=== PATIENT | female | born 1970 | race Caucasian/White ===

== ENCOUNTER 2018-01-16 15:43 | Outpatient (CLI) | payer BC | END 2018-01-16 15:44 | disposition home or self-care (01) | LOC: BICMAMMO 15:43 | PROVIDERS: ATTEND Obstetrics & Gynecology | DX: Z12.31 Encounter for screening mammogram for malignant neoplasm of breast (principal) | CPT/HCPCS: 76856; 77063; 77067 ==

== ENCOUNTER 2018-12-17 09:18 | Outpatient (CLI) | payer BC ==
--- NOTE | 2018-12-17 14:30 | ULT ---
Exam: Pelvic ultrasound HISTORY: Pelvic pain COMPARISON: 01/16/2018 TECHNIQUE: Multiple grayscale and color Doppler images were obtained in a transabdominal and transvag inal pelvic ultrasound. Spectral analysis of the Doppler waveforms of the ovaries were performed. FINDINGS: CERVIX: Grossly within normal limits where visualized. UTERUS: Normal in size without focal abnormality. ENDOMETRIAL STRIPE: 15 mm which is mildly increased in thickness. Endometrial stripe thickness on the prior study measured 12 mm. No fluid or fluid collection is seen in the endometrial canal. No free fluid is present. RIGHT OVARY: Normal flow, without focal mass. LEFT OVARY: Normal flow, without focal mass. IMPRESSION: 1. Mild nonspecific thickening of the endometrial stripe. No fluid or fluid collection is seen in the endometrial canal. 2. Normal appearing bilateral ovaries with flow documented in each ovary.
== END 2018-12-17 09:19 | disposition home or self-care (01) ==
LOC: BICULT 09:18
PROVIDERS: ATTEND Obstetrics & Gynecology
DX: R10.2 Pelvic and perineal pain (principal)
CPT/HCPCS: 76856

== ENCOUNTER 2019-04-29 15:51 | Outpatient (CLI) | payer BC ==
--- NOTE | 2019-04-29 16:24 | MMO ---
Bilateral MAMMO Bilat Screen [facility]. CLINICAL HISTORY: Patient is 49 years old and is seen for screening. The patient has no family history of breast cancer. The patient has no personal history of cancer. VIEWS: The views performed were: bilateral craniocaudal with tomosynthesis and bilateral mediolateral oblique with tomosynthesis. FILMS COMPARED: The present examination has been compared to prior imaging studies performed at [facility] on 02/16/2014, 08/15/2015, 11/28/2016 and 01/16/2018. This study has been interpreted with the assistance of computer-aided detection. MAMMOGRAM FINDINGS: There are scattered fibroglandular densities. There are no suspicious masses, suspicious calcifications, or new areas of architectural distortion. IMPRESSION: THERE IS NO MAMMOGRAPHIC EVIDENCE OF MALIGNANCY. A ROUTINE FOLLOW-UP MAMMOGRAM IN 1 YEAR IS RECOMMENDED. THE RESULTS OF THIS EXAM WERE SENT TO THE PATIENT. ACR BI-RADS Category 1 - Negative MAMMOGRAPHY NOTE: 1. A negative mammogram report should not delay a biopsy if a dominant of clinically suspicious mass is present. 2. Approximately 10% to 15% of breast cancers are not detected by mammography. 3. Adenosis and dense breasts may obscure an underlying neoplasm. Reported by: TAMARA BARRY MD Electonically Signed: [id number]
== END 2019-04-29 15:52 | disposition home or self-care (01) ==
LOC: BICMAMMO 15:51
PROVIDERS: ATTEND Obstetrics & Gynecology
DX: Z12.31 Encounter for screening mammogram for malignant neoplasm of breast (principal)
CPT/HCPCS: 77063; 77067

== ENCOUNTER 2019-06-21 08:22 | Outpatient (CLI) | payer BC ==
--- NOTE | 2019-06-21 10:02 | RAD ---
ABDOMEN ONE VIEW: HISTORY: Obesity. Evaluation Lap-Band. COMPARISON: None. FINDINGS: The reservoir tubing is disconnected from the Lap-Band. The phi angle was approximately 29 degrees. IMPRESSION: 1. The metal connector attaching the subcutaneous port to the tubing of the gastric band is disconnec leisa with at least a 10 cm gap. 2. Normal phi angle of the gastric band. POS: [facility]
== END 2019-06-21 08:23 | disposition home or self-care (01) ==
LOC: BICRAD 08:22
PROVIDERS: ATTEND Surgery
DX: E66.9 Obesity, unspecified (principal)
CPT/HCPCS: 74018